=== PATIENT | male | born 1940 | race Caucasian/White ===

== ENCOUNTER 2025-07-05 17:37 | Emergency (ER) | payer MEDICARE ==
[~2025-07-05] VITALS: Ht 180.3 cm; Wt 68.0 kg
[2025-07-05 17:44] VITALS: BP 159/81
[2025-07-05] MEDS ORDERED: FINA5TAB11 PO (17:50)
[2025-07-05 18:16] LABS: PLATELET COUNT (AUTO) 145 K/uL (152-348); RED BLOOD CELL COUNT(AUTO) 4.55 MIL/uL (4.06-5.63); RED CELL DISTRIBUTION WIDTH 13.5 % (12.1-16.2); WHITE BLOOD COUNT (AUTO) 4.5 K/uL (3.6-10.2)
[2025-07-05] MEDS: IV NORMAL SALINE 500 ML BAG IV ONE (18:24)
[2025-07-05] MEDS ORDERED: METOCLOPRAMIDE HCL 10 MG/2 ML VIAL ONE (18:25)
[2025-07-05] MEDS: METOCLOPRAMIDE HCL 10 MG/2 ML VIAL IV ONE (18:26)
[2025-07-05 18:29] LABS: CREATININE 1.0 mg/dL (0.6-1.3); SODIUM SERUM 142 mmol/L (136-145); UREA NITROGEN, BLOOD 21 mg/dL (7-18)
[2025-07-05 18:35] LABS: ASPARTATE AMINOTRANSFERASE 19 U/L (15-37); TOTAL PROTEIN, SERUM 7.5 g/dL (6.4-8.2)
[2025-07-05] MEDS ORDERED: PANT40TA49 PO (18:46)
[2025-07-05] MEDS ORDERED: METO-295 PO (18:46)
[2025-07-05 19:30] VITALS: BP 124/67; TEMP 97.8; O2SAT 98
== END 2025-07-05 19:00 | disposition home or self-care (01) ==
LOC: ER 17:37
DX: K29.00 Acute gastritis without bleeding (principal); B34.9 Viral infection, unspecified; N40.0 Benign prostatic hyperplasia without lower urinary tract symptoms; Z20.822 Contact with and (suspected) exposure to COVID-19; Z79.899 Other long term (current) drug therapy
CPT/HCPCS: 36415; 71045; 84484; 85025; 85730; A4606; A4663; J2765; J7040